=== PATIENT | female | born 1945 | race Caucasian/White ===

== ENCOUNTER 2017-09-04 08:24 | Day surgery (SDC) | payer OTHER, MEDICARE ==
[~2017-09-04] VITALS: Ht 157.5 cm; Wt 56.7 kg
[~2017-09-04 08:24] MED LIST: ASPIR-LOW81 MG PO; CARVEDILOL3.125 MG PO; CENTRUM WOMEN1 EACH PO; CETIRIZINE HCL10 M2 PO; LISINOPRIL5 MG PO; VENLAFAXINE HCL75 MG PO; VITAMIN D31000 UNI2 PO
== END 2017-09-04 15:40 | disposition home or self-care (01) ==
LOC: CATH 08:24
PROC: B2111ZZ Fluoroscopy of Multiple Coronary Arteries using Low Osmolar Contrast (ICD-10-PCS; principal; 2017-09-04)
PROC: 4A023N7 Measurement of Cardiac Sampling and Pressure, Left Heart, Percutaneous Approach (ICD-10-PCS; principal; 2017-09-04)
PROC: B2151ZZ Fluoroscopy of Left Heart using Low Osmolar Contrast (ICD-10-PCS; principal; 2017-09-04)
DX: I71.2 Thoracic aortic aneurysm, without rupture (principal); I35.1 Nonrheumatic aortic (valve) insufficiency; I42.9 Cardiomyopathy, unspecified; I49.1 Atrial premature depolarization; J43.1 Panlobular emphysema; I27.20 Pulmonary hypertension, unspecified; Z79.82 Long term (current) use of aspirin
CPT/HCPCS: 93005; C1750; C1769; C1887; J1644; J2250; J3010

== ENCOUNTER 2017-11-12 16:08 | Emergency (ER) | payer OTHER, MEDICARE ==
[~2017-11-12] VITALS: Ht 157.5 cm; Wt 60.7 kg
[2017-11-12 18:29] LABS: HEMATOCRIT 37.7 % (36.0-46.0); HEMOGLOBIN 12.6 G/DL (11.9-15.5); MCH 31.8 PG (29.0-34.0); MCHC 33.4 G/DL (30.0-36.0); MCV 95.2 FL (83-99); PLATELET COUNT 171 K/uL (156-360); RBC DIS.WIDTH-CV 12.6 % (11.8-14.6); RBC DIS.WIDTH-SD 43.3 % (39-53); RED BLOOD COUNT 3.96 M/uL (3.80-5.20)
[2017-11-12 18:47] LABS: CHLORIDE 105 mEq/L (99-109); POTASSIUM 4.1 mEq/L (3.7-5.4); SODIUM 141 mEq/L (136-147)
[2017-11-12 18:49] LABS: GLUCOSE 94 mg/dL (70-99)
[2017-11-12 18:51] LABS: TOTAL BILIRUBIN 0.3 mg/dL (0.0-1.0)
[2017-11-12 18:53] LABS: ALKALINE PHOSPHATASE 89 IU/L (3-129); CREATININE 0.9 mg/dL (0.6-1.3); GFR ESTIMATE (CALCULATED) > 59 mL/min/
[2017-11-12 18:54] LABS: UREA NITROGEN (BUN) 24 mg/dL (9-23)
[2017-11-12 18:55] LABS: AST (GOT) 44 IU/L (2-34)
[2017-11-12 18:56] LABS: ALT (GPT) 21 IU/L (3-49)
[2017-11-12] MEDS ORDERED: FLEXERIL10 MG PO (20:07)
[2017-11-12 20:45] VITALS: BP 160/76
== END 2017-11-12 20:58 | disposition home or self-care (01) ==
LOC: EME 16:08
PROVIDERS: Emergency Medicine
DX: M54.9 Dorsalgia, unspecified (principal); R07.9 Chest pain, unspecified; M54.2 Cervicalgia; V43.62XA Car passenger injured in collision with other type car in traffic accident, initial encounter; Y92.410 Unspecified street and highway as the place of occurrence of the external cause; I71.2 Thoracic aortic aneurysm, without rupture; J44.9 Chronic obstructive pulmonary disease, unspecified; F41.9 Anxiety disorder, unspecified; F32.9 Major depressive disorder, single episode, unspecified; Z87.891 Personal history of nicotine dependence; Z79.82 Long term (current) use of aspirin; Z88.0 Allergy status to penicillin
CPT/HCPCS: 70450; 71260; 72125; 72129; 72132; 74177; 80053; 83605; 85027; 86850; 86900; 86901; 99281; 99285; J2270; J2405